=== PATIENT | female | born 1940 | race Caucasian/White ===

== ENCOUNTER → 2016-08-13 | Outpatient (CLI) | payer BC ==
[~2016-08-13] MED LIST: HYDR50TA3 PO; LISI-461 PO; MULTTAB58 PO; POTA10CA28 PO; PRED1SUS3 OPR
== END | disposition home or self-care (01) ==
LOC: C.PATHSPEC 17:16
PROVIDERS: ATTEND Orthopaedic Surgery
DX: R22.32 Localized swelling, mass and lump, left upper limb (principal)

== ENCOUNTER → 2017-04-11 | Outpatient (CLI) | payer BC | END | disposition home or self-care (01) | LOC: C.LAB1850 10:52 | PROVIDERS: ATTEND Internal Medicine Rheumatology | DX: M05.741 Rheumatoid arthritis with rheumatoid factor of right hand without organ or systems involvement (principal) ==

== ENCOUNTER → 2017-09-06 | Outpatient (CLI) | payer BC ==
--- NOTE | 2017-09-06 12:06 | DIAGNOSTIC IMAGING REPORT ---
R HAND MIN 3 VIEWS ROUTINE CLINICAL HISTORY: 77 years-old Female presenting with M81.0 Postmenopausal osteoporosis M05.741 Rheumatoid arthritis. TECHNIQUE: Frontal, oblique, and lateral views of the right hand were obtained. COMPARISON: None. FINDINGS: No acute fracture or malalignment. Focal soft tissue swelling at the proximal interphalangeal joint of the fourth finger suggested. At this joint, minimal osteophytosis noted. Joint space preserved. No gross evidence of erosions. IMPRESSION: Focal soft tissue swelling at the proximal interphalangeal joint of the fourth finger. This is nonspecific. The distribution is not characteristic of rheumatoid arthritis. No acute osseous injury. Electronically signed by: Dustin White M.D. 09/06/2017 12:05 PM Dictated Date/Time: 09/06/2017 12:03 PM
== END | disposition home or self-care (01) ==
LOC: C.RAD1850 11:37
PROVIDERS: ATTEND Internal Medicine Rheumatology
DX: L94.2 Calcinosis cutis (principal); Z79.899 Other long term (current) drug therapy; M81.0 Age-related osteoporosis without current pathological fracture; M05.742 Rheumatoid arthritis with rheumatoid factor of left hand without organ or systems involvement; M79.9 Soft tissue disorder, unspecified

== ENCOUNTER 2019-10-17 10:27 | Inpatient (IN) ==
--- OUTSIDE RECORDS SUMMARY | 2019-10-17 10:30 | External Medical Summary | Continuity of Care Document ---
:1940 Author Name Nanda Brooks, Provider Address Unavailable Unavailable , Care Team Providers Name Role Phone Unavailable Unavailable Unavailable Zainab Brown M.D. Unavailable [email or web address] Unavailable Unavailable Unavailable Unavailable Unavailable Problems Gout (274.9) (M10.9) Elevated uric acid in blood (790.6) (E79.0) Long-term use of immunosuppressant medication (V58.69) (Z79. 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 15 Tablet B ottrita Refills: 0 Zantac 150 MG TABS; TAKE 1 TABLET DAILY. , M.D. Refills: 0 Atorvastatin Calcium 10 MG Oral Tablet; TAKE 1 TABLET AT BED TIME. , M.D. 90 Tablet Bottle Refills: 0 Potassium Chloride 10 MEQ CPCR; TAKE 1 CAPSULE TWICE DAILY. , M.D. Refills: 0 Aspirin 81 MG TABS; TAKE 1 TABLET DAILY. , M.D. Refills: 0 methylPREDNISolone 4 MG Oral Tablet Ther apy Pack; USE DIRECTED ONPATIENT INSTRUCTION CARD Cecilia Brown Start: 27-Mar-2018 Quantity: 1 21 Tablet Pack Refills: 1 Allopurinol 100 MG Oral Tablet; TAKE 2 TABLETS DAILY. Cecilia Brown Start: 27-Mar-2018 Refills: 0 Azithromycin 500 MG Oral Tablet; TAKE 1 TABLET DAILY U NTIL FINISHED Cecilia Brown Start: 18-Apr-2018 Quantity: 3 Refills: 0 Enbrel SureClick 50 MG/ML Subcutaneous S olution Auto-injector; patient to inject sub q 1 per week Cecilia Brown Start: 12-May-2017 Quantity: 4 Refills: 2 Procedures History of Total Abdominal Hysterectomy With Removal Of Both Status: Completed Ovaries History of Pelvic Lymphadenectomy Status : Completed History of Influenza vaccine needed Stat us: Completed Immunizations Influenza On: 06-Apr-2010 12:01 Lot #: [id number], SANOFI PASTEUR Tubersol 5 UNIT/0.1ML Intradermal Solution On: 11-Apr-2017 1 0:40 Lot #: [id number], [employer]FI [employer]UR Plan of Treatment Planned Observations Planned Goals not documented Results No Known Results Results not documented Encounters Appointment; Zainab Brown M.D. 12-Jun-2018 11:40 Encounter Diagnosis: Problem not documented Appointment; Zainab Brown M.D. 22-Mar-2018 13:20 Encounter Diagnosis: Problem not documented Appointment; Zainab Brown M.D. 08-Mar-2018 10:40 Encounter Diagnosis: Problem not documented Appointment; Zainab Brown M.D. 06-Dec-2017 10:40 Encounter Diagnosis: Problem not documented
--- NOTE | 2019-10-17 10:58 | Emergency Department Note ---
Impression & Plan Heart block AV third degree, Bradycardia, Weakness ED Provider Note NAME: REKHA CATHERINE AGE: 79 SEX: F : 1940 ARRIVES VIA: Walk-In INFORMANT: Patient, ED PROVIDER(S): Giuseppe Templeton DO CHIEF COMPLAINT: Weakness HPI: The patient is a 79-year-old female who was sent to the emergency department from the office for an evaluation of generalized weakness. The patient has been noticing that when she goes to stand she gets very dizzy. She feels lightheaded as though she may pass out. She also feels exertional dyspnea. She states the symptoms started approximately 1 to 2 weeks ago. She has had no rash or fever. She denies having any cough nausea or vomiting. She is on no new medications. The patient was found to have an abnormal EKG and was sent to the emergency department for further evaluation. She has had no recent traveling. She has had no recent tick bites that she is aware of. ROS: See above HPI for pertinent positives & negatives. A total of 10 systems reviewed and were otherwise negative. PAST MEDICAL HISTORY: See Below PAST SURGICAL HISTORY: See Below FAMILY HISTORY: See Below SOCIAL HISTORY: See Below HOME MEDICATIONS: See Below ALLERGIES: See Below VITALS: See Below PHYSICAL EXAMINATION: GENERAL: Patient is awake alert in no acute distress patient is resting comfortably and showing no signs of anxiety EYES: The conjunctivae are clear. The pupils are round and reactive. EARS, NOSE, MOUTH AND THROAT: The nose is without any evidence of any deformity. Mucous membranes are moist. Tongue is midline. NECK: The neck is nontender and supple. RESPIRATORY: Normal respiratory effort is noted there is no evidence of wheezing rhonchi or rales CARDIOVASCULAR: Bradycardic but regular rate was noted to auscultation. There was no definite murmur. GASTROINTESTINAL: The abdomen is soft. Abdomen is nontender. MUSCULOSKELETAL/EXTREMITIES: There is no evidence of gross deformity full range of motion is noted in the hips and shoulders. SKIN: There is no obvious evidence of any rash. There are no petechiae, pallor or cyanosis noted. NEUROLOGIC: Patient is awake alert and oriented x3 strength is symmetric patellar reflexes are 2+ bilaterally MEDICAL DECISION MAKING: The patient is a 79-year-old female who presented to the emergency department for an evaluation of weakness. The patient is been having symptoms over the last week or 2. She notices when she tries to exert herself she becomes very fatigued. The patient went to see her primary care physician today and was found to be in third-degree heart block. She was sent to the emergency department for an evaluation. The patient was not hypotensive. She was found to be bradycardic. The patient was placed on transcutaneous pacemaker but did not require pacing in the emergency department. I discussed the patient's laboratory and radiographic studies with her. I also discussed this case with the on-call [facility] historic preservationist as well as the on-call [facility] hospitalist. They have agreed to evaluate the patient in the emergency depart ment for further management disposition. The patient was kept n.p.o. as she may require pacemaker this afternoon. I did make the patient aware of this plan and she was agreeable. Triage Nursing notes reviewed. Prior medical records reviewed Vital Signs: reviewed and remarkable for bradycardia Differential diagnosis: Infection, dehydration, metabolic abnormality, hypo/hyperglycemia, electrolyte disturbance, anemia, hypoxia, cardiac sources, intracerebral event, toxicologic, neurologic, as well as other pathologies. ER treatment provided: See below Diagnostics interpreted by me: ECG: EKG was obtained in the emergency department. My interpretation is third- degree heart block with a ventricular rate of 42 bpm. There were anterior Q waves noted. There were no PVCs. This was compared to a tracing done on March 01, 2015. The changes are new. Cardiac Monitoring: An order was placed for continuous cardiac monitoring. The monitor shows a rate of 58 with third-degree heart block rhythm. Laboratory studies: As stated above and show below. Imaging studies: See below Consultation(s): 1100: I discussed this case with Dr Phillips. He will evaluate the patient in consultation for possible pacemaker. 1140: I discussed this case with Dr. Head. He is agreed to evaluate the patient in the emergency department for further management and disposition. Past Med/Surg History Social History Preferred Language: Congolese Communication Ability: Effective Associate Property Manager Required: No Beliefs That Will Affect Care: None Current Living Situation: Spouse Other Information That Helps Us Care for You: No Feels Safe at Home: Yes Safety Concerns: Feels Safe At This Time Smoking Status: Never smoker Hx Alcohol Use: Yes Alcohol type: wine Hx Substance Use: No Allergies Allergies Allergy/AdvReac Type Severity Reaction Status Date / Time No Known Allergies Allergy Mild Verified 10/17/19 10:57 Home Meds Home Medications Medication Instructions Recorded Confirmed allopurinol 100 mg PO BID 10/17/19 10/17/19 aspirin 81 mg PO DAILY 10/17/19 10/17/19 atorvastatin 10 mg PO DAILY 10/17/19 10/17/19 lisinopril 20 mg PO DAILY 10/17/19 10/17/19 multivitamin 1 tab PO DAILY 10/17/19 10/17/19 potassium chloride 10 meq PO DAILY 10/17/19 10/17/19 Results & Data (ED) Vital Signs Vital Signs - 24 hr 10/17/19 10:37 10/17/19 10:55 10/17/19 11:00 Temperature 36.5 C Temperature Source Oral Pulse Rate 73 64 39 L Pulse Rate from SpO2 Sensor Pulse Rhythm Regular Pulse Strength Normal Respiratory Rate 18 13 14 Respiratory Effort / Characteristics Non-Labored Respiratory Pattern Regular Blood Pressure 197/48 H Blood Pressure Mean 97 Blood Pressure Position Sitting Pulse Oximetry 100 Oxygen Delivery Method Room Air Sepsis Recent Fever Within 48 Hours No Sepsis Action Taken by Nursing No Action Required 10/17/19 11:09 10/17/19 11:10 10/17/19 11:12 Temperature Temperature Source Pulse Rate 48 L 46 L Pulse Rate from SpO2 Sensor Pulse Rhythm Pulse Strength Respiratory Rate 19 18 Respiratory Effort / Characteristics Respiratory Pattern Blood Pressure 168/64 H Blood Pressure Mean 107 Blood Pressure Position Pulse Oximetry 98 Oxygen Delivery Method Room Air Sepsis Recent Fever Within 48 Hours Sepsis Action Taken by Nursing 10/17/19 11:16 10/17/19 11:20 10/17/19 11:30 Temperature Temperature Source Pulse Rate 40 L 40 L 41 L Pulse Rate from SpO2 Sensor 40 L 40 L Pulse Rhythm Pulse Strength Respiratory Rate 15 21 12 Respiratory Effort / Characteristics Respiratory Pattern Blood Pressure 146/59 H Blood Pressure Mean 101 Blood Pressure Position Pulse Oximetry 99 99 Oxygen Delivery Method Sepsis Recent Fever Within 48 Hours Sepsis Action Taken by Assisted Medications Current Medication List: was personally reviewed by me Laboratory Data Attestation: I reviewed the patient's lab results. Result diagrams: 10/17/19 11:25 10/17/19 11:25 Lab Results 10/17/19 10/17/19 10/17/19 Range/Units 11:25 11:25 11:25 WBC 6.80 (4.8-10.8) K/uL RBC 3.48 L (4.2-5.4) M/uL Hgb 11.3 L (12.0-16.0) g/dL Hct 34.8 L (37-47) % MCV 100.0 (80-100) fL MCH 32.5 (25-34) pg MCHC 32.5 (32-36) g/dL RDW Std Deviation 51.7 H (36.4-46.3) fL RDW Coeff of Guru 14.2 (11.5-14.5) % Plt Count 315 (130-400) K/uL MPV 10.8 H (7.4-10.4) fL Immature Gran % (Auto) 0.1 % Neut % (Auto) 73.7 % Lymph % (Auto) 18.7 % Ross % (Auto) 5.6 % Eos % (Auto) 1.5 % Baso % (Auto) 0.4 % Immature Gran # (Auto) 0.01 (0.00-0.02) K/uL Neut # (Auto) 5.01 (1.4-6.5) K/uL Lymph # (Auto) 1.27 (1.2-3.4) K/uL Ross # (Auto) 0.38 (0.11-0.59) K/uL Eos # (Auto) 0.10 (0-0.5) K/uL Baso # (Auto) 0.03 (0-0.2) K/uL PT 10.6 (9.0-12.0) Seconds INR 1.0 (0.9-1.1) APTT 24.5 (21.0-31.0) Seconds PTT Ratio 0.9 Sodium 141 (136-145) mmol/L Potassium 4.5 (3.5-5.1) mmol/L Chloride 110 H (98-107) mmol/L Carbon Dioxide 21 (21-32) mmol/L Anion Gap 10.0 (3-11) BUN 39 H (7-18) mg/dl Creatinine 1.32 H (0.6-1.2) mg/dl Est Cr Clr Drug Dosing 32.0 ml/min Est GFR ( Amer) 45.0 Est GFR (Non-Af Amer) 38.8 BUN/Creatinine Ratio 29.4 H (10-20) Glucose 134 H (70-99) mg/dl Calcium 9.4 (8.5-10.1) mg/dl Magnesium 2.0 (1.8-2.4) mg/dl Total Bilirubin 0.5 (0.2-1) mg/dl AST 30 (15-37) U/L ALT 44 (12-78) U/L Alkaline Phosphatase 64 (45-117) U/L Total Creatine Kinase 36 (26-192) U/L Troponin I < 0.015 (0-0.045) ng/ml Total Protein 8.0 (6.4-8.2) gm/dl Albumin 4.3 (3.4-5.0) gm/dl Globulin 3.7 (2.5-4.0) gm/dl Albumin/Globulin Ratio 1.2 (0.9-2) TSH 2.430 (0.300-4.500) uIu/ml Lyme Disease IgG Ab (Negative) Lyme Disease IgM Ab (Negative) 10/17/19 Range/Units 11:25 WBC (4.8-10.8) K/uL RBC (4.2-5.4) M/uL Hgb (12.0-16.0) g/dL Hct (37-47) % MCV (80-100) fL MCH (25-34) pg MCHC (32-36) g/dL RDW Std Deviation (36.4-46.3) fL RDW Coeff of Guru (11.5-14.5) % Plt Count (130-400) K/uL MPV (7.4-10.4) fL Immature Gran % (Auto) % Neut % (Auto) % Lymph % (Auto) % Ross % (Auto) % Eos % (Auto) % Baso % (Auto) % Immature Gran # (Auto) (0.00-0.02) K/uL Neut # (Auto) (1.4-6.5) K/uL Lymph # (Auto) (1.2-3.4) K/uL Ross # (Auto) (0.11-0.59) K/uL Eos # (Auto) (0-0.5) K/uL Baso # (Auto) (0-0.2) K/uL PT (9.0-12.0) Seconds INR (0.9-1.1) APTT (21.0-31.0) Seconds PTT Ratio Sodium (136-145) mmol/L Potassium (3.5-5.1) mmol/L Chloride (98-107) mmol/L Carbon Dioxide (21-32) mmol/L Anion Gap (3-11) BUN (7-18) mg/dl Creatinine (0.6-1.2) mg/dl Est Cr Clr Drug Dosing ml/min Est GFR ( Amer) Est GFR (Non-Af Amer) BUN/Creatinine Ratio (10-20) Glucose (70-99) mg/dl Calcium (8.5-10.1) mg/dl Magnesium (1.8-2.4) mg/dl Total Bilirubin (0.2-1) mg/dl AST (15-37) U/L ALT (12-78) U/L Alkaline Phosphatase (45-117) U/L Total Creatine Kinase (26-192) U/L Troponin I (0-0.045) ng/ml Total Protein (6.4-8.2) gm/dl Albumin (3.4-5.0) gm/dl Globulin (2.5-4.0) gm/dl Albumin/Globulin Ratio (0.9-2) TSH (0.300-4.500) uIu/ml Lyme Disease IgG Ab Negative (Negative) Lyme Disease IgM Ab Negative (Negative) Administered Medications Discontinued Medications Bacitracin (Bacitracin) Confirm Administered Dose 50,000 units .ROUTE .STK-MED ONE Stop: 10/17/19 14:33 Last Admin: 10/17/19 15:22 Dose: 50,000 units Documented by: [id number] Bupivacaine HCl (Sensorcaine 0.25% Inj) Confirm Administered Dose 30 ml .ROUTE .STK-MED ONE Stop: 10/17/19 14:32 Last Admin: 10/17/19 15:21 Dose: 30 ml Documented by: [id number] Cefazolin Sodium (Ancef) Confirm Administered Dose 1,000 mg .ROUTE .STK-MED ONE Stop: 10/17/19 14:36 Last Admin: 10/17/19 15:22 Dose: 1,000 mg Documented by: [id number] Fentanyl Citrate (Fentanyl Citrate) Confirm Administered Dose 100 mcg .ROUTE .STK-MED ONE Stop: 10/17/19 14:36 Last Admin: 10/17/19 15:22 Dose: 100 mcg Documented by: [id number] Fentanyl Citrate (Fentanyl Citrate) Confirm Administered Dose 100 mcg .ROUTE .STK-MED ONE Stop: 10/17/19 15:10 Last Increment: 10/17/19 15:22 Dose: 25 mcg Documented by: [id number] Lidocaine HCl (Xylocaine 1% (Local)) Confirm Administered Dose 20 ml .ROUTE .STK-MED ONE Stop: 10/17/19 14:31 Last Admin: 10/17/19 15:21 Dose: 20 ml Documented by: [id number] Midazolam HCl (Versed) Confirm Administered Dose 5 mg .ROUTE .STK-MED ONE Stop: 10/17/19 14:36 Last Admin: 10/17/19 15:22 Dose: 5 mg Documented by: [id number] Imaging Data Radiologist's Impression: XR chest 1V portable CLINICAL HISTORY: weakness COMPARISON STUDY: Chest radiograph February 26, 2015. FINDINGS: Lung volumes are normal. Lungs are clear. There is no pneumothorax or pleural effusion. Cardiac size is normal. Mediastinal contours are normal. There is no evidence for pulmonary edema. Incidental note is made of a left shoulder arthroplasty. IMPRESSION: No acute cardiopulmonary findings. ACT 112: Negative or not required by law. Electronically signed by: Juan Laguna M.D. 10/17/2019 11:39 AM Dictated: 10/17/19 1139 Transcribed: 10/17/19 1139 Blood Pressure Blood Pressure Findings: Elevated blood pressure Blood Pressure Disposition: further management by hospitalist Discharge Plan Visit Data *Final* Discharge Date/Time: 10/17/19 13:48 Chief Complaint: Shortness of Breath/Dyspnea Stated Complaint: DIZZY, SOB ED Provider: Giuseppe Templeton Discharge Problem: Heart block AV third degree, Bradycardia, Weakness Patient Disposition: Admitted As Inpatient Condition: Good Discharge Instructions Interventions: ED Discharge Assessment Last Done: 10/17/19 13:48
--- NOTE | 2019-10-17 11:41 | XRay Report ---
XR chest 1V portable CLINICAL HISTORY: weakness COMPARISON STUDY: Chest radiograph February 26, 2015. FINDINGS: Lung volumes are normal. Lungs are clear. There is no pneumothorax or pleural effusion. Car diac size is normal. Mediastinal contours are normal. There is no evidence for pulmonary edema. Incid ental note is made of a left shoulder arthroplasty. IMPRESSION: No acute cardiopulmonary findings. ACT 112: Negative or not required by law. Electronically signed by: Juan Laguna M.D. 10/17/2019 11:39 AM
[2019-10-17 11:45] LABS: Basophils # (auto) 0.03 K/uL (0-0.2); Basophils % (auto) 0.4 %; Eosinophils % (auto) 1.5 %; Hematocrit (blood only) 34.8 % (37-47); Hemoglobin 11.3 g/dL (12.0-16.0); Immature Granulocytes # (auto) 0.01 K/uL (0.00-0.02); Immature Granulocytes % (auto) 0.1 %; Lymphocytes # (auto) 1.27 K/uL (1.2-3.4); Lymphocytes % (auto) 18.7 %; Mean Corpuscular Hemoglobin 32.5 pg (25-34); Mean Corpuscular Hgb Conc 32.5 g/dL (32-36); Mean Platelet Volume 10.8 fL (7.4-10.4); Monocytes # (auto) 0.38 K/uL (0.11-0.59); Monocytes % (auto) 5.6 %; Neutrophils # (auto) 5.01 K/uL (1.4-6.5); Neutrophils % (auto) 73.7 %; Platelet Count 315 K/uL (130-400); RDW Coefficient of Variation 14.2 % (11.5-14.5); RDW Standard Deviation 51.7 fL (36.4-46.3); Red Blood Count 3.48 M/uL (4.2-5.4)
--- NOTE | 2019-10-17 11:46 | History & Physical Report ---
Date of Service October 17, 2019 Assessment & Plan (1) Abnormal EKG: Patient is currently in third-degree heart block Patient admitted to inpatient telemetry unit with close monitoring and consideration transfer ICU of she does not support her blood pressure Lyme titer is pending electrophysiology consult is considering pacemaker placement echocardiogram from 2015 is normal (2) HTN (hypertension): Patient typically takes lisinopril which will be on hold at this time (3) Gout: Allopurinol will be continued (4) Dyslipidemia: Atorvastatin will be held (5) DVT prophylaxis: Will use SCDs History of Present Illness Primary Care Provider: Serge Clifford DO 79-year-old female presents from her primary care office after presenting there for weakness and found to be in third-degree heart block. Patient complains of lightheadedness and feeling that she might pass out associated with additional exertional dyspnea she says she is at the symptoms for 1 to 2 weeks. She has had no cold symptoms or fever symptoms. She is had no nausea or vomiting she takes no new medications she said no recent tick bites or Lyme disease diagnosis. 1 of her last medical admission some [facility] was due to traumatic fall associate with alcohol use. I have personal discussions with electrophysiology health and physical education teacher there is consideration for pacemaker placement Allergies Allergy/AdvReac Type Severity Reaction Status Date / Time No Known Allergies Allergy Mild Verified 10/17/19 10:57 Home Medications Home Medications Medication Instructions Recorded Confirmed Type allopurinol 100 mg PO BID 10/17/19 10/17/19 History aspirin 81 mg PO DAILY 10/17/19 10/17/19 History atorvastatin 10 mg PO DAILY 10/17/19 10/17/19 History lisinopril 20 mg PO DAILY 10/17/19 10/17/19 History multivitamin 1 tab PO DAILY 10/17/19 10/17/19 History potassium chloride 10 meq PO DAILY 10/17/19 10/17/19 History Past Med/Surg History Medical History Abnormal EKG (Acute) Anterior dislocation of left shoulder (Acute) Fracture of head of left humerus (Acute) HTN (hypertension) (Chronic) Social History Preferred Language: Lebanese Communication Ability: Effective Virtualization Consultant Required: No Beliefs That Will Affect Care: None Current Living Situation: Spouse Feels Safe at Home: Yes Smoking Status: Never smoker Hx Alcohol Use: Yes Alcohol type: wine Hx Substance Use: No Review of Systems Review of Systems: Mild distress and fatigue no headache, blurry or double vision no speech or swallowing issues no chest pain, pressure or palpitations no shortness of breath, cough or wheezes no abdominal pain, nausea or vomiting, diarrhea or constipation no dysuria, hematuria or frequency no focal joint pain or swelling no back pain, CVA tenderness or radicular pain no bruising, bleeding or rashes no focal signs of weakness or numbness or altered sensation no complaints or anxiety or depression Physical Exam Physical Exam: The patient appeared well nourished and normally developed. Vital signs as documented. Head exam is normocephalic atraumatic no scleral icterus Neck is without JVD, thyromegaly, or carotid bruits. Lungs are clear to auscultation, no focal loss of breath sounds Cardiac exam, bradycardic and regular without murmur Abdominal exam reveals normal bowel sounds, soft non tender, no masses Extremities are nonedematous and both pedal pulses are normal. Neurologic exam is alert and oriented, no focal loss of strength or sensation Skin is without bruises or rashes Psychologically is without concerns for anxiety or depression Results & Data Results & Data ([facility]) Vital Signs (Past 12 Hours) Vital Signs EKG shows third-degree heart block Temp Pulse Resp BP Pulse Ox 10/17/19 11:12 98 10/17/19 11:10 46 L 18 10/17/19 11:09 48 L 19 168/64 H 10/17/19 11:00 39 L 14 10/17/19 10:55 64 13 10/17/19 10:37 97.7 F 73 18 197/48 H 100 Code Status & VTE Plan VTE Prophylaxis Plan VTE Prophylaxis will be ordered: Yes PG Care Time/CCT Total # of Minutes Spent Total Time Spent with Patient: Total time spent is greater than 50% in coordination of care (as documented) at patient's floor/unit and/or counseling patient: Coding Level of Care Code 71875 Initial Inpt Care Lvl 3 Diagnoses Abnormal EKG R94.31 HTN (hypertension) I10 Gout M10.9 Dyslipidemia E78.5 DVT prophylaxis Z29.9
[2019-10-17 11:50] LABS: Partial Thromboplastin Ratio 0.9; Partial Thromboplastin Time 24.5 Seconds (21.0-31.0); Prothrombin Time 10.6 Seconds (9.0-12.0)
[2019-10-17 11:52] LABS: Alanine Aminotransferase 44 U/L (12-78); Albumin Level 4.3 gm/dl (3.4-5.0); Aspartate Aminotransferase 30 U/L (15-37); BUN Creatinine Ratio 29.4 (10-20); Blood Urea Nitrogen 39 mg/dl (7-18); Calcium 9.4 mg/dl (8.5-10.1); Carbon Dioxide 21 mmol/L (21-32); Chloride 110 mmol/L (98-107); Est GFR (Non-African American) 38.8; Glucose 134 mg/dl (70-99); Potassium 4.5 mmol/L (3.5-5.1); Sodium 141 mmol/L (136-145)
[2019-10-17 12:03] LABS: Albumin Globulin Ratio 1.2 (0.9-2); Alkaline Phosphatase 64 U/L (45-117); Bilirubin,Total 0.5 mg/dl (0.2-1); Creatine Kinase 36 U/L (26-192); Globulin 3.7 gm/dl (2.5-4.0); Troponin I < 0.015 ng/ml (0-0.045)
[2019-10-17 12:13] LABS: Lyme Ab IgG w/WB Rflx Negative (Negative); Lyme Ab IgM w/WB Rflx Negative (Negative)
[2019-10-17] MEDS ORDERED: ALUMINUM/MAGNESIUM SUSP 30 ML UDC PO PRN (14:13)
[2019-10-17] MEDS ORDERED: SODIUM CHLORIDE 0.9% 1000ML 1,000 ML IV SCH (14:13)
[2019-10-17] MEDS ORDERED: POLYETHYLENE (MIRALAX) 17 GM PACK PO PRN (14:13)
[2019-10-17] MEDS ORDERED: ONDANSETRON INJ 2 MG/ML 2 ML VIAL IV PRN (14:13)
[2019-10-17] MEDS ORDERED: LIDOCAINE HCL 1% 20 ML VIAL ONE (14:30)
[2019-10-17] MEDS ORDERED: BUPIVACAINE 0.25% 30 ML VIAL ONE (14:31)
[2019-10-17] MEDS ORDERED: BACITRACIN INJ 50,000 UNIT VIAL ONE (14:32)
[2019-10-17] MEDS ORDERED: fentaNYL citrate 100 MCG/2 ML VIAL ONE ×2 (14:35→15:09)
[2019-10-17] MEDS ORDERED: CEFAZOLIN 250 MG/ML 1 GM VIAL ONE (14:35)
[2019-10-17] MEDS ORDERED: MIDAZOLAM HCL 5 MG/ML 1 ML VIAL ONE (14:35)
--- NOTE | 2019-10-17 14:46 | Cardiology Consultation ---
Date of Consultation October 17, 2019 Assessment & Plan (1) Heart block AV third degree: Her symptoms are likely related to her heart block. She cannot mount an adequate ventricular response with activity. The etiology of her heart block is likely age related. She does not have evidence of a cardiomyopathy. No significant aortic valvular disease. Her thyroid studies normal. Her Lyme titers are negative. She is not on medications which would produce heart block. I think the best option in this situation is a permanent pacemaker. I described the procedure to the patient including the risks and alternatives. In the absence of a pacemaker she will continue to have symptoms and may have progressive conduction disease with more severe symptoms. Will plan on proceeding this afternoon. History of Present Illness Reason for Consultation: Heart block Requesting Physician: Adilene Attending Physician: Olu Head MD History of Present Illness The patient is a 79-year-old woman without a known history of cardiac disease who has been experiencing symptoms mild exertional intolerance and dizziness. Patient states the symptoms started several days ago. She did not have extreme symptoms of presyncope and has not suffered syncope, however symptoms do appear to be worse with activity. She has noted occasional palpitations. She has not had significant chest discomfort. She has some mild dyspnea associated with activity. This appears more chronic in nature. Based on the symptoms she has resented to her primary care physician who recognized bradycardia and heart block. She was referred to the emergency room for evaluation. At the time my interview the patient claims to be feeling well. She is not having symptoms lying in bed. Allergies Allergy/AdvReac Type Severity Reaction Status Date / Time No Known Allergies Allergy Mild Verified 10/17/19 10:57 Home Medications Home Medications Medication Instructions Recorded Confirmed Type allopurinol 100 mg PO BID 10/17/19 10/17/19 History aspirin 81 mg PO DAILY 10/17/19 10/17/19 History atorvastatin 10 mg PO DAILY 10/17/19 10/17/19 History lisinopril 20 mg PO DAILY 10/17/19 10/17/19 History multivitamin 1 tab PO DAILY 10/17/19 10/17/19 History potassium chloride 10 meq PO DAILY 10/17/19 10/17/19 History Patient History Medical History Abnormal EKG (Acute) Anterior dislocation of left shoulder (Acute) Fracture of head of left humerus (Acute) HTN (hypertension) (Chronic) Social History Preferred Language: [place]an Communication Ability: Effective Chinese Instructor Required: No Beliefs That Will Affect Care: None Current Living Situation: Spouse Other Information That Helps Us Care for You: No Feels Safe at Home: Yes Safety Concerns: Feels Safe At This Time Smoking Status: Never smoker Hx Alcohol Use: Yes Alcohol type: wine Hx Substance Use: No Review of Systems 2 Review of Systems: All systems reviewed & are unremarkable except as noted in HPI & below Physical Exam Physical Exam: She is alert and oriented x3. Mood affect appear normal. She answered all questions appropriately. HEENT: Sclerae are anicteric. Pupils are equal and reactive to light and accommodation. Extraocular movements were intact. Neuro: Cranial nerves intact Neck: Examination of the submandibular region did not reveal any significant lymphadenopathy. Carotids are palpable bilaterally and free of bruits on auscultation. There was no evidence of jugular venous distention. The thyroid was not enlarged. Lungs: Lungs are clear to auscultation bilaterally. There are no rales wheezes or rhonchi. She has normal respiratory effort without use of accessory muscles. There is normal pulmonary excursion. Cardiac: The rhythm was regular but the rate was slow. S1 and S2 were normal. There are no murmurs on examination. The PMI was not markedly displaced on palpation. Chest: Well-healed surgical scar in the left deltopectoral groove Abdomen: The abdomen was soft and nontender. Extremities: Patient has bilateral radial pulses that are equal in intensity. There is no evidence cyanosis or clubbing. There was no evidence of significant peripheral edema bilaterally. Skin: There are no rashes noted on examination today. Results & Data ([facility]) Vital Signs (Past 12 Hours) Vital Signs Temp Pulse Pulse Resp BP BP Pulse Ox 10/17/19 14:20 41 L 10/17/19 14:13 36.8 C 46 L 18 143/50 H 97 10/17/19 13:46 58 L 15 138/81 99 10/17/19 13:40 40 L 13 99 10/17/19 13:32 42 L 15 168/42 H 99 10/17/19 13:30 43 L 17 99 10/17/19 13:20 41 L 23 100 10/17/19 13:15 39 L 12 109/58 L 100 10/17/19 13:10 39 L 12 99 10/17/19 13:00 40 L 18 135/70 98 10/17/19 12:50 41 L 16 100 10/17/19 12:45 40 L 14 110/58 L 99 10/17/19 12:40 39 L 15 100 10/17/19 12:31 42 L 14 105/62 99 10/17/19 12:30 40 L 15 96 10/17/19 12:20 42 L 14 100 10/17/19 12:16 41 L 12 143/58 H 99 10/17/19 12:10 41 L 23 98 10/17/19 12:02 42 L 16 150/56 H 100 10/17/19 12:00 42 L 12 99 10/17/19 11:51 40 L 40 L 14 101/59 L 101/59 L 99 10/17/19 11:50 40 L 21 10/17/19 11:40 41 L 11 L 10/17/19 11:30 41 L 12 10/17/19 11:20 40 L 21 99 10/17/19 11:16 40 L 15 146/59 H 99 10/17/19 11:12 98 10/17/19 11:10 46 L 18 10/17/19 11:09 48 L 19 168/64 H 10/17/19 11:00 39 L 14 10/17/19 10:55 64 13 10/17/19 10:37 36.5 C 73 18 197/48 H 100 Laboratory Results Abnormal Lab Results 10/17/19 10/17/19 10/17/19 11:25 11:25 11:25 WBC 6.80 RBC 3.48 L Hgb 11.3 L Hct 34.8 L MCV 100.0 MCH 32.5 MCHC 32.5 RDW Std Deviation 51.7 H RDW Coeff of Guru 14.2 Plt Count 315 MPV 10.8 H Immature Gran % (Auto) 0.1 Neut % (Auto) 73.7 Lymph % (Auto) 18.7 [place] % (Auto) 5.6 Eos % (Auto) 1.5 Baso % (Auto) 0.4 Immature Gran # (Auto) 0.01 Neut # (Auto) 5.01 Lymph # (Auto) 1.27 [place] # (Auto) 0.38 Eos # (Auto) 0.10 Baso # (Auto) 0.03 PT 10.6 INR 1.0 APTT 24.5 PTT Ratio 0.9 Sodium 141 Potassium 4.5 Chloride 110 H Carbon Dioxide 21 Anion Gap 10.0 BUN 39 H Creatinine 1.32 H Est Cr Clr Drug Dosing 32.0 Est GFR ( Amer) 45.0 Est GFR (Non-Af Amer) 38.8 BUN/Creatinine Ratio 29.4 H Glucose 134 H Calcium 9.4 Magnesium 2.0 Total Bilirubin 0.5 AST 30 ALT 44 Alkaline Phosphatase 64 Total Creatine Kinase 36 Troponin I < 0.015 Total Protein 8.0 Albumin 4.3 Globulin 3.7 Albumin/Globulin Ratio 1.2 TSH 2.430 Lyme Disease IgG Ab Lyme Disease IgM Ab 10/17/19 11:25 WBC RBC Hgb Hct MCV MCH MCHC RDW Std Deviation RDW Coeff of Guru Plt Count MPV Immature Gran % (Auto) Neut % (Auto) Lymph % (Auto) [place] % (Auto) Eos % (Auto) Baso % (Auto) Immature Gran # (Auto) Neut # (Auto) Lymph # (Auto) [place] # (Auto) Eos # (Auto) Baso # (Auto) PT INR APTT PTT Ratio Sodium Potassium Chloride Carbon Dioxide Anion Gap BUN Creatinine Est Cr Clr Drug Dosing Est GFR ( Amer) Est GFR (Non-Af Amer) BUN/Creatinine Ratio Glucose Calcium Magnesium Total Bilirubin AST ALT Alkaline Phosphatase Total Creatine Kinase Troponin I Total Protein Albumin Globulin Albumin/Globulin Ratio TSH Lyme Disease IgG Ab Negative Lyme Disease IgM Ab Negative Diagnostic Findings Chest x-ray obtained the time admission not reveal any acute cardiopulmonary disease Echocardiogram demonstrated preserved LV systolic function without significant valvular heart disease ECG Additional Comments: Normal sinus rhythm with complete heart block PG Care Time/CCT Total # of Minutes Spent Total Time Spent with Patient: Total time spent is greater than 50% in coordination of care (as documented) at patient's floor/unit and/or counseling patient: Coding Level of Care Code 33386 OBS Care - Level 3 Diagnoses Heart block AV third degree I44.2
--- NOTE | 2019-10-17 14:47 | Pre Anesthesia Assessment ---
Date of Service October 17, 2019 Pre Sedation Assessment Vital Signs Temp Pulse Pulse Resp BP BP Pulse Ox 10/17/19 14:20 41 L 10/17/19 14:13 36.8 C 46 L 18 143/50 H 97 10/17/19 13:46 58 L 15 138/81 99 10/17/19 13:40 40 L 13 99 10/17/19 13:32 42 L 15 168/42 H 99 10/17/19 13:30 43 L 17 99 10/17/19 13:20 41 L 23 100 10/17/19 13:15 39 L 12 109/58 L 100 10/17/19 13:10 39 L 12 99 10/17/19 13:00 40 L 18 135/70 98 10/17/19 12:50 41 L 16 100 10/17/19 12:45 40 L 14 110/58 L 99 10/17/19 12:40 39 L 15 100 10/17/19 12:31 42 L 14 105/62 99 10/17/19 12:30 40 L 15 96 10/17/19 12:20 42 L 14 100 10/17/19 12:16 41 L 12 143/58 H 99 10/17/19 12:10 41 L 23 98 10/17/19 12:02 42 L 16 150/56 H 100 10/17/19 12:00 42 L 12 99 10/17/19 11:51 40 L 40 L 14 101/59 L 101/59 L 99 10/17/19 11:50 40 L 21 10/17/19 11:40 41 L 11 L 10/17/19 11:30 41 L 12 10/17/19 11:20 40 L 21 99 10/17/19 11:16 40 L 15 146/59 H 99 10/17/19 11:12 98 10/17/19 11:10 46 L 18 10/17/19 11:09 48 L 19 168/64 H 10/17/19 11:00 39 L 14 10/17/19 10:55 64 13 10/17/19 10:37 36.5 C 73 18 197/48 H 100 Cardiovascular + bradycardic Respiratory + respiratory effort normal Pre-Sedation Airway Assessment Smoking Status: Never smoker Hx Sleep Apnea: No Hx Difficult Intubation: No Short, Thick Neck: No Thyromental Distance: > or= 3.5 Finger Breadths Oral Cavity: + WNL Mallampati Class: III ASA: ASA3 Procedure Planning Contraindications for Sedation: none Current Medications Reviewed: Yes Notes The planned sedation has been discussed with the patient. Informed Consent was obtained. I have identified the patient, determined the appropriateness of sedation and have assessed the patient immediately prior to the procedure. All medicine(s) and interventions are by my order.
--- NOTE | 2019-10-17 15:42 | Post Anesthesia Assessment ---
Date of Service October 17, 2019 Post Sedation Assessment Vital Signs Temp Pulse Pulse Resp BP BP Pulse Ox 10/17/19 14:20 41 L 10/17/19 14:13 36.8 C 46 L 18 143/50 H 97 10/17/19 13:46 58 L 15 138/81 99 10/17/19 13:40 40 L 13 99 10/17/19 13:32 42 L 15 168/42 H 99 10/17/19 13:30 43 L 17 99 10/17/19 13:20 41 L 23 100 10/17/19 13:15 39 L 12 109/58 L 100 10/17/19 13:10 39 L 12 99 10/17/19 13:00 40 L 18 135/70 98 10/17/19 12:50 41 L 16 100 10/17/19 12:45 40 L 14 110/58 L 99 10/17/19 12:40 39 L 15 100 10/17/19 12:31 42 L 14 105/62 99 10/17/19 12:30 40 L 15 96 10/17/19 12:20 42 L 14 100 10/17/19 12:16 41 L 12 143/58 H 99 10/17/19 12:10 41 L 23 98 10/17/19 12:02 42 L 16 150/56 H 100 10/17/19 12:00 42 L 12 99 10/17/19 11:51 40 L 40 L 14 101/59 L 101/59 L 99 10/17/19 11:50 40 L 21 10/17/19 11:40 41 L 11 L 10/17/19 11:30 41 L 12 10/17/19 11:20 40 L 21 99 10/17/19 11:16 40 L 15 146/59 H 99 10/17/19 11:12 98 10/17/19 11:10 46 L 18 10/17/19 11:09 48 L 19 168/64 H 10/17/19 11:00 39 L 14 10/17/19 10:55 64 13 10/17/19 10:37 36.5 C 73 18 197/48 H 100 Recovery Score Activity: Moves 4 extremities Respiration: Deep Breath/Cough Circulation: +/-20% PreAnes Value Consciousness: Fully Awake Oxygen Saturation: > 92% On Room Air Discharge Sedation Level of Care: Fast Track Phase II Post Sedation Plan On clinical assessment, the patient appears to have tolerated the sedation without complications. Patient is recovering as anticipated. Patient will continue to be monitored by nursing and may be discharged when sedation discharge criteria are met per below protocol. Upon Completions of procedure up to 15 minutes continue every 5 minute vital signs and the P.A.R. score; then discharge to a Phase I or Fast Track to Phase II per the following guidelines: * Discharge Patient to appropriate Phase II area if PAR is 8 or greater or return to pre- procedure baseline. The post - procedure orders will be as di rected. * If PAR score is less than 8 or not return to pre-procedure baseline then patient will follow Phase I monitoring till PAR is reached for Phase II. The Phase I may be done in procedure room or may call to secure a Phase I area. * If naloxone or flumazenil are used for reversal, hold in Phase I for continued monitoring from when last reversal dose was given for a minimum of 60 minutes or longer pending the nurse and/or physician discretion of patient condition before discharge to Phase II. Please call the Sedation Physician to re-evaluate and complete post-note for discharge to Phase II area. Do NOT discharge from procedure sedation or Phase 1 until post- sedation evaluation note is complete by procedure /sedation MD Sedation Discharge Instructions to be given to the patient at discharge to home.
--- NOTE | 2019-10-17 15:42 | Electrophysiology Report ---
Date of Service October 17, 2019 Electrophysiology Procedure Electrophysiology Procedure Report Procedure performed: Implantation of dual-chamber permanent pacemaker Staff stock raiser: Mark Phillips MD Indication: The patient is a 79-year-old woman who presented to the emergency room with symptoms of dizziness and exercise intolerance. She was discovered to be in complete heart block. She was felt to be good candidate for permanent pacing due to symptomatic nonreversible AV node dysfunction. Dual-chamber device was selected as she is currently in sinus rhythm and wished to maintain AV synchrony. Procedure in detail: The patient was informed of the risks benefits and alternatives to the intended procedure and she wished to proceed. She was taken to the electrophysiology suite in a fasting state. A preoperative antibiotic had been administered. The patient was monitored electrocardiographically throughout today's procedure and conscious sedation was administered per protocol. The left upper pectoral area is prepped and draped in usual sterile fashion. This area was anesthetized using subcutaneous administration of a xylocaine solution. An incision was made at this site and carried down to the prepectoralis fascia using sharp dissection. Electrocautery was also employed for dissection as well as for hemostasis. A device pocket was fashioned tissues above the pectoralis muscle. Subsequent to this maneuver the left axillary vein was accessed using modified Seldinger technique. Sheaths were placed over guidewires at this site and used to facilitate passage of the pacing leads to the respective chambers under fluoroscopic guidance. This included right atrial and right ventricular leads. Adequate sensing and threshold parameters were obtained prior to Active fixation of the leads to the endocardial surface. The proximal portion leads were then sutured the prepectoral fascia using nonabsorbable suture. The device pocket was irrigated with antibiotic solution. The leads were then attached to the device. The device and leads were then placed in the pocket and pocket was closed in 3 layers of absorbable suture. Steri-Strips and sterile dressing were applied. The device was tested noninvasively prior to conclusion the procedure. The patient tolerated procedure well there no immediate complications. Equipment used: New pulse generator: Instructional Manager [employer]. Model number: [id number] serial number [id number] Right atrial lead: Instructional Manager [employer]. Model number: [id number] serial number [id number] Right ventricular lead: Instructional Manager [employer]. Model number: 5076 serial number [id number] Measured data: Right atrial lead: P waves measure 1.3 mV. Pacing threshold 1 V at 0.4 ms with a paced impedance of 551 ohms Right ventricular lead: R waves measured 12.8 mV. Pacing threshold 0.75 V at 0.4 ms with a pacing impedance of 627 ohms Impression: Successful implantation of dual-chamber permanent pacemaker [facility] Electrophysiology codes Pacing Procedure 1: Pacin Insert/Replace Pacer A & V PG Moderate Sedation Codes Moderate Sedation Codes Procedure 1: Sedation/Anesthesia: 75890 Mod Sedation by the same physician;Init15 Min Child Age 5 & Up Procedure 2: Sedation/Anesthesia: 89092 Mod Sedation by the same physician; Ea [id number] Minutes
--- NOTE | 2019-10-17 16:05 | XCELERA ---
[id number]
[2019-10-17] MEDS ORDERED: ACETAMINOPHEN 325 MG TAB PO PRN (16:09)
[2019-10-17] MEDS ORDERED: TRAMADOL HCL 50 MG TABLET PO PRN (16:10)
--- NOTE | 2019-10-17 16:18 | Electrocardiogram Report ---
Test Reason : Blood Pressure : / mmHG Vent. Rate : 042 BPM Atrial Rate : 108 BPM P-R Int : 000 ms QRS Dur : 104 ms QT Int : 494 ms P-R-T Axes : 075 -06 060 degrees QTc Int : 412 ms Sinus tachycardia with complete heart block and Junctional bradycardia Low voltage QRS Abnormal ECG Confirmed by Mark Phillips ([id number]) on 10/17/2019 4:18:40 PM Referred By: Confirmed By:Justice Phillips
[2019-10-17] MEDS: ACETAMINOPHEN 325 MG TAB PO PRN (21:09)
[2019-10-17] MEDS: allopurinoL 100 MG TAB PO SCH (21:09)
[2019-10-17] MEDS: DiphenhydrAMINE 2%/ZINC 0.1% CREAM 28GM TUBE EXT PRN (21:16)
[2019-10-17] MEDS: CEFAZOLIN 1000MG 1,000 MG/7.5 ML SYR IV SCH (23:08)
[2019-10-18 01:21] LABS: Appearance Urine Clear (Clear); Bacteria Urine Automated Negative (Negative); Bilirubin Urine Negative (Negative); Blood Urine Negative (Negative); Color Urine Yellow; Glucose Urine UA Negative (Negative); Ketones Urine Trace (Negative); Leukocyte Esterase Urine 1+ (Negative); Nitrite Urine Negative (Negative); Protein Urine Negative (Negative); RBC Urine Automated 0-4 /hpf (0-4); Urobilinogen Urine Negative (Negative)
[2019-10-18] MEDS: ACETAMINOPHEN 325 MG TAB PO PRN ×2 (04:25→08:36)
--- NOTE | 2019-10-18 07:36 | XRay Report ---
XR chest 2V PA/lateral CLINICAL HISTORY: EXACT TIME ORDERED Evaluate for pneumothorax. COMPARISON STUDY: Chest radiograph October 17, 2019. FINDINGS: There is no pneumothorax following placement of a dual-lead left subclavian pacemaker. Lead tips project over the right atrial appendage and the right ventricle. There is no evidence for pulmo nary edema. Cardiomediastinal silhouette is stable. No pleural effusion is noted. There is no consoli dation. Left shoulder arthroplasty is incidentally noted. IMPRESSION: No pneumothorax following placement of a dual-lead left subclavian pacemaker. ACT 112: Negative or not required by law. Electronically signed by: Juan Laguna M.D. 10/18/2019 7:34 AM
[2019-10-18] MEDS: CEFAZOLIN 1000MG 1,000 MG/7.5 ML SYR IV SCH (08:37)
[2019-10-18] MEDS: allopurinoL 100 MG TAB PO SCH (08:37)
[2019-10-18] MEDS: DiphenhydrAMINE 2%/ZINC 0.1% CREAM 28GM TUBE EXT PRN (08:39)
[2019-10-18 08:53] LABS: BUN Creatinine Ratio 28.6 (10-20); Calcium 8.7 mg/dl (8.5-10.1); Creatinine Clr Calc Pharmacy 38.9 ml/min; Est GFR (African American) 55.5; Est GFR (Non-African American) 47.9; Potassium 4.1 mmol/L (3.5-5.1)
--- NOTE | 2019-10-18 11:14 | Cardiology Progress Note ---
Date of Service October 18, 2019 Assessment & Plan (1) Heart block AV third degree: Patient underwent successful implantation of dual-chamber permanent pacemaker yesterday. No evident complication. She is safe for discharge. She should refrain from lifting left arm above the shoulder or behind the neck for 6 weeks. She should keep the wound dry the Steri-Strips intact until follow-up in our clinic next week. I asked the to make her an appointment next week for wound evaluation. Subjective This morning patient claims to be feeling well. No significant discomfort at the device implant site. Review of Systems Review of Systems: Per HPI Physical Exam Physical Exam: Evaluation of the device implant site reveals the absence of significant erythema. No drainage. No hematoma. Results & Data Vital Signs (Past 12 Hours) Vital Signs Temp Pulse Pulse Resp BP BP Pulse Ox 10/18/19 10:29 36.9 C 74 18 121/65 142/68 H 96 10/18/19 07:40 36.9 C 74 18 142/68 H 96 10/18/19 07:08 60 10/18/19 04:50 36.7 C 60 16 143/72 H 95 10/17/19 23:36 36.7 C 80 16 132/59 L 95 Laboratory Results Abnormal Lab Results 10/17/19 10/17/19 10/17/19 11:25 11:25 11:25 WBC 6.80 RBC 3.48 L Hgb 11.3 L Hct 34.8 L MCV 100.0 MCH 32.5 MCHC 32.5 RDW Std Deviation 51.7 H RDW Coeff of Guru 14.2 Plt Count 315 MPV 10.8 H Immature Gran % (Auto) 0.1 Neut % (Auto) 73.7 Lymph % (Auto) 18.7 [place] % (Auto) 5.6 Eos % (Auto) 1.5 Baso % (Auto) 0.4 Immature Gran # (Auto) 0.01 Neut # (Auto) 5.01 Lymph # (Auto) 1.27 [place] # (Auto) 0.38 Eos # (Auto) 0.10 Baso # (Auto) 0.03 PT 10.6 INR 1.0 APTT 24.5 PTT Ratio 0.9 Sodium 141 Potassium 4.5 Chloride 110 H Carbon Dioxide 21 Anion Gap 10.0 BUN 39 H Creatinine 1.32 H Est Cr Clr Drug Dosing 32.0 Est GFR ( Amer) 45.0 Est GFR (Non-Af Amer) 38.8 BUN/Creatinine Ratio 29.4 H Glucose 134 H Calcium 9.4 Magnesium 2.0 Total Bilirubin 0.5 AST 30 ALT 44 Alkaline Phosphatase 64 Total Creatine Kinase 36 Troponin I < 0.015 Total Protein 8.0 Albumin 4.3 Globulin 3.7 Albumin/Globulin Ratio 1.2 TSH 2.430 Urine Color Urine Appearance Urine pH Ur Specific [place] Urine Protein Urine Glucose (UA) Urine Ketones Urine Blood Urine Nitrite Urine Bilirubin Urine Urobilinogen Ur Leukocyte Esterase Urine WBC (Auto) Urine RBC (Auto) U Hyaline Cast (Auto) U Epithel Cells (Auto) Urine Bacteria (Auto) Lyme Disease IgG Ab Lyme Disease IgM Ab 10/17/19 10/18/19 10/18/19 11:25 00:20 07:58 WBC RBC Hgb Hct MCV MCH MCHC RDW Std Deviation RDW Coeff of Guru Plt Count MPV Immature Gran % (Auto) Neut % (Auto) Lymph % (Auto) [place] % (Auto) Eos % (Auto) Baso % (Auto) Immature Gran # (Auto) Neut # (Auto) Lymph # (Auto) [place] # (Auto) Eos # (Auto) Baso # (Auto) PT INR APTT PTT Ratio Sodium 140 Potassium 4.1 Chloride 111 H Carbon Dioxide 19 L Anion Gap 11.0 BUN 32 H Creatinine 1.11 Est Cr Clr Drug Dosing 38.9 Est GFR ( Amer) 55.5 Est GFR (Non-Af Amer) 47.9 BUN/Creatinine Ratio 28.6 H Glucose 85 Calcium 8.7 Magnesium Total Bilirubin AST ALT Alkaline Phosphatase Total Creatine Kinase Troponin I Total Protein Albumin Globulin Albumin/Globulin Ratio TSH Urine Color Yellow Urine Appearance Clear Urine pH 5.0 Ur Specific [place] 1.020 Urine Protein Negative Urine Glucose (UA) Negative Urine Ketones Trace H Urine Blood Negative Urine Nitrite Negative Urine Bilirubin Negative Urine Urobilinogen Negative Ur Leukocyte Esterase 1+ H Urine WBC (Auto) 10-30 H Urine RBC (Auto) 0-4 U Hyaline Cast (Auto) 1-5 U Epithel Cells (Auto) 10-20 H Urine Bacteria (Auto) Negative Lyme Disease IgG Ab Negative Lyme Disease IgM Ab Negative Diagnostic Findings Chest x-ray demonstrated good lead placement without evidence of pneumothorax Device interrogation reveals normal function both atrial ventricular leads. The
--- NOTE | 2019-10-18 16:08 | Electrocardiogram Report ---
Test Reason : Blood Pressure : / mmHG Vent. Rate : 067 BPM Atrial Rate : 060 BPM P-R Int : 198 ms QRS Dur : 154 ms QT Int : 478 ms P-R-T Axes : 000 -83 083 degrees QTc Int : 505 ms AV dual-paced rhythm with occasional Premature ventricular complexes Abnormal ECG When compared with ECG of 17-OCT-2019 10:45, Electronic ventricular pacemaker has replaced Junctional rhythm Vent. rate has increased BY 25 BPM Confirmed by Mark Phillips ([id number]) on 10/18/2019 4:08:06 PM Referred By: REFERRED SELF Confirmed By:Justice Phillips
--- NOTE | 2019-10-18 18:44 | Discharge Summary ---
Date of Service October 18, 2019 Admission HPI Per Admitting Provider 79-year-old female presents from her primary care office after presenting there for weakness and found to be in third-degree heart block. Patient complains of lightheadedness and feeling that she might pass out associated with additional exertional dyspnea she says she is at the symptoms for 1 to 2 weeks. She has had no cold symptoms or fever symptoms. She is had no nausea or vomiting she takes no new medications she said no recent tick bites or Lyme disease diagnosis. 1 of her last medical admission some [facility] was due to traumatic fall associate with alcohol use. 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 Lungs are clear to auscultation and appear unlabored Cardiac exam, Rhythm is regular.. No murmurs, rubs or gallops. Abdominal exam reveals normal bowel sounds, soft non tender, no masses Extremities are nonedematous and both pedal pulses are normal. Neurologic exam is alert and oriented, no focal loss of strength or sensation Skin is without bruises or rashes Psychologically is without concerns for anxiety or depression Discharge Data Allergies Allergy/AdvReac Type Severity Reaction Status Date / Time No Known Allergies Allergy Mild Verified 10/17/19 10:57 Consultations 10/17/19 11:14 Consult Cardiology Stat 10/17/19 11:43 ED Decision to Admit Stat 10/17/19 14:13 Consult Cardiology Routine Procedures Performed Operation Date: 10/17/19 14:00 Actual Procedures p Pacer with A/V Leads (Dual) - Sylvain Phillips MD Ordered Studies 10/17/19 14:24 CL Cath Imgs for PACS use only Routine Hospital Course (1) Abnormal EKG: Patient presented in third-degree heart block as feeling symptomatic from her Patient underwent placement of a [employer] bipolar pacemaker on 10/17/[address] Sky Phillips she was seen the day of discharge and felt stable to go home she is having very little discomfort at the site she was being paced almost 100% of the time Lyme titer is negative echocardiogram was repeated on admission found to be normal with ejection fraction estimated 55 to 60% (2) HTN (hypertension): Patient typically takes lisinopril which will be held at the time of discharge (3) Gout: Allopurinol will be continued (4) Dyslipidemia: Atorvastatin will resume to discharge Total Time Total Time Spent Total Time Spent (In Minutes): It required greater than 30 minutes to prepare this patient for discharge Discharge Plan Discharge Items Patient Disposition: Home - Self-Care Reason For Visit: COMPLETE HEART BLOCK Discharge Diagnosis: complete heart block with pacemaker placement Condition on Discharge: Good Activity: Per Instructions section Activity Comment: limited lifting of arm as instructed by cardiology Non-emergency contact: Primary Care Provider and Mobile Ui Designer Call non-emergency contact if: you have any medication questions and your symptoms worsen Follow-up/Referrals: Serge Clifford, [Primary Care Provider] - 10/23/19 10:10 am Diet: Regular Addtl Attending Provider Instructions: ACTIVITY RECOMMENDATIONS: * Do not raise affected arm over head for 2 weeks. SPECIAL CARE INSTRUCTIONS: * If bleeding occurs, apply direct pressure to area for 5 minutes. * Call your doctor if you have severe pain, fever, drainage or bleeding at site. * Keep dressing on and dry for 48 hours then remove. * Keep any scheduled doctor's appointment. * Implant Card - hand held device with website information given. SKIN IRRITATION: * You may experience some redness and/or swelling in the area where radiation was administered. If any skin irritation occurs, please contact your family physician. FOLLOW UP VISIT: Keep any scheduled doctor appointments. Pending Studies at Discharge: No Stand-Alone Forms: [employer], Smoking Cessation Medications and DC Order Prescriptions: Continued multivitamin Tablet 1 tab PO DAILY RF: 0 atorvastatin 10 mg tablet 10 mg PO DAILY RF: 0 lisinopril 20 mg tablet 20 mg PO DAILY RF: 0 allopurinol 100 mg tablet 100 mg PO BID RF: 0 aspirin 81 mg Tablet,Delayed Release (Dr/Ec) 81 mg PO DAILY RF: 0 potassium chloride 10 mEq tablet,ER particles/crystals 10 meq PO DAILY RF: 0 Discharge Orders: Discharge Order (Routine); Ordered 10/18/19 Ordered By: Olu Sherman/Other Patient Handouts: Discharge Instructions for Pacemaker Implantation Admission Data Admit Date/Time: 10/17/19 11:36 Attending Provider: Olu Head Admit Provider: Olu Head Primary Care Provider: Serge Clifford Other Providers: Sylvain Phillips ; Olu Head Other Interventions: Discharge Summary Assessment (RN) Last Done: 10/18/19 10:29 DC Date/Time DO NOT enter until pt leaves facility: 10/18/19 11:32 Coding Level of Care Code D/C Day Management >30 mins Diagnoses Abnormal EKG R94.31 HTN (hypertension) I10 Gout M10.9 Dyslipidemia E78.5
== END 2019-10-18 11:32 | disposition home or self-care (01) | DRG 244 ==
LOC: ED 10:27 → 2S 11:36